=== PATIENT | male | born 1985 | race Caucasian/White ===

== ENCOUNTER 2016-07-11 19:23 | Emergency (ER) | payer OTHER ==
--- NOTE | ~2016-07-11 | EKG ---
PATIENT: JENNIFER ORTEGA UNIT #: [id number] Ventricular Rate: 96 BPM Atrial Rate: 96 BPM P-R Interval: 146 ms QRS Duration: 92 ms Q-T Interval: 344 ms QTC Calculation(Bezet): 434 ms P Comanche: 65 degrees Calculated R Comanche: 70 degrees Calculated T Comanche: 8 degrees Diagnosis Line: Normal sinus rhythm Diagnosis Line: Normal ECG Diagnosis Line: When compared with ECG of 16-FEB-2016 08:55, Diagnosis Line: No significant change was found Diagnosis Line: Confirmed by BEVERLY MOISE MD ([id number]) on Diagnosis Line: 07/12/2016 8:17:50 AM INTERPRETING MD: JOSE MARIA MEJIA
--- NOTE | ~2016-07-11 | CR72 ---
[facility] A Service of [facility] & [facility] RADIOLOGY TEXT RESULTS PATIENT: JENNIFER ORTEGA SR LOCATION: [facility] : [birth year] UNIT #: [id number] AGE: [address]: Josiah Cannon MD SEX: M ORDER DR: [id number] [facility] [address] [place], [place] [address] [id number] MR#: [id number] Acc #: [id number] NAME: JENNIFER ORTEGA SR : 1985 SEX: M STUDY DATE/TIME: 07/11/2016 19:26 UNIT: [facility] ROOM: STUDY DESCRIPTION: CR Chest Single View Portable Attending Physician: Josiah Cannon M.D. Referring Physician: Miriam Barnes M.D. Ordering Physician: Ed Doctor [id number] [facility] Primary Care Physician: Miriam Barnes M.D. MEDICAL IMAGING REPORT This report is preliminary unless electronic signature is present EXAM Portable chest HISTORY Chest pain and headache for 2 days. COMPARISON 02/16/2016 FINDINGS A single AP portable view of the chest shows both lungs to be clear. The heart is normal in size. The mediastinal contour is normal. No significant bone abnormalities are seen. IMPRESSION Normal portable chest. Dictated by... Ismael Bal M.D. THIS IS AN ELECTRONICALLY VERIFIED REPORT Ismael Bal M.D. at 07/12/2016 6:32 PM Thomas TD: 07/12/2016 09:15 JOB #: [id number] MEDICAL IMAGING REPORT COPY
[2016-07-11 17:28] LABS: BASOPHIL% 0.3 % (0-2.5); EOSINOPHIL# 0.4 X10e3 (0-0.7); EOSINOPHIL% 3.3 % (0.0-7.0); HEMATOCRIT 43.8 % (38.0-50.0); HEMOGLOBIN 14.5 gm/dL (13.0-16.0); LYMPHOCYTE# 2.5 X10e3 (1.0-3.5); MEAN CELL VOLUME 82.9 FL (83-96); MEAN CORPUSCULAR HEMOGLOBIN 27.6 PG (28-34); MEAN CORPUSCULAR HGB CONC 33.2 g/dL (30-36); MEAN PLATELET VOLUME 9.2 FL (6.5-11.5); MONOCYTE# 0.7 X10e3 (0-1.0); MONOCYTE% 6.3 % (3.0-12.0); NEUTROPHIL# 7.6 X10e3 (1.5-7.1); NEUTROPHIL% 68.1 % (40-75); PLATELET COUNT 163 X10e3 (140-420); RED BLOOD COUNT 5.28 X10e (3.90-5.60); RED CELL DISTRIBUTION WIDTH 13.7 % (11.0-15.5); WHITE BLOOD COUNT 11.2 X10e3 (4.0-10.5)
[2016-07-11 17:29] LABS: DIFF IND NO
[2016-07-11 17:58] LABS: ALBUMIN SERUM 4.7 g/dL (3.5-5.0); ALKALINE PHOSPHATASE 72 U/L (32-92); ALT (SGPT) 49 U/L (10-40); AST (SGOT) 31 U/L (10-42); BILIRUBIN, DIRECT 0.1 mg/dL (0.0-0.2); BILIRUBIN,INDIRECT 0.7 mg/dL (0.0-0.9); BILIRUBIN,TOTAL 0.8 mg/dL (0.2-2.0); BLOOD UREA NITROGEN 12 mg/dL (9-23); CALCIUM SERUM 9.5 mg/dL (8.4-10.2); CARBON DIOXIDE 26 mmol/L (22-31); CHLORIDE 102 mmol/L (100-111); CREATININE SERUM 0.8 mg/dL (0.6-1.4); GLOM FILT RATE Estimated ABOVE60 mL/min (>60); GLUCOSE FASTING 97 mg/dL (70-110); PROTEIN TOTAL SERUM 7.5 g/dL (6.0-8.3); SODIUM 139 mmol/L (135-145)
[2016-07-11 18:07] LABS: POC - CKMB 1.2 ng/mL (0.0-7.9); POC - TROPONIN <0.05 ng/mL (<=0.05)
[~2016-07-11 19:23] MED LIST: ALBUTEROL17 GM IN; ALBUTEROL20 ml INH; DELTASONE20 MG PO; DOXYCYCLINE HY100 M3 PO; FAMOTIDINE PO; NO MEDICATIONS; NORFLEX100 M1; ROBITUSSIN A-C S5 ML PO; VOLTAREN75 MG; VOLTAREN75 MG PO
[2016-07-11 20:26] LABS: POC - CKMB <1.0 ng/mL (0.0-7.9); POC - TROPONIN <0.05 ng/mL (<=0.05)
== END 2016-07-11 21:05 | disposition home or self-care (01) ==
LOC: CED 19:23
PROVIDERS: Emergency Medicine
DX: R07.9 Chest pain, unspecified (principal); I10 Essential (primary) hypertension; I51.7 Cardiomegaly; Z90.49 Acquired absence of other specified parts of digestive tract; Z91.030 Bee allergy status; Z88.8 Allergy status to other drugs, medicaments and biological substances
CPT/HCPCS: 36415; 71010; 80048; 80076; 82553; 83690; 84484; 85025; 85379; 93005; 99284; J1885